=== PATIENT | female | born 1995 | race Caucasian/White ===

== ENCOUNTER 2017-04-06 11:22 | Outpatient (CLI) | payer OTHER ==
[~2017-04-06] VITALS: Ht 172.7 cm; Wt 113.0 kg
[~2017-04-06 11:22] MED LIST: IBUP-1222 PO; OXYC-302 PO
[2017-04-06 12:06] VITALS: BP 131/81
[2017-04-06 12:17] LABS: ASPARTATE AMINO TRANSFERASE 8 U/L (15-37); BLOOD UREA NITROGEN 6 mg/dL (7-18)
== END 2017-04-06 13:30 | disposition home or self-care (01) ==
LOC: LDOP 11:22
PROVIDERS: ATTEND Obstetrics & Gynecology Gynecology
DX: O24.419 Gestational diabetes mellitus in pregnancy, unspecified control (principal); O42.912 Preterm premature rupture of membranes, unspecified as to length of time between rupture and onset of labor, second trimester; O62.9 Abnormality of forces of labor, unspecified; Z3A.26 26 weeks gestation of pregnancy
CPT/HCPCS: 36415; 59025; 80053; 81001; 82248; 82570; 84156; 84550; 85025; 99211; G0463

== ENCOUNTER 2017-04-23 10:07 | Inpatient (IN) | payer OTHER ==
[~2017-04-23] VITALS: Ht 170.2 cm; Wt 114.1 kg
[2017-04-23] MEDS ORDERED: OXYTOCIN 30U/ 0.9% NaCL 500ML 500 ML IV ONE (10:45)
[2017-04-23] MEDS ORDERED: OXYTOCIN 30U/ 0.9% NaCL 500ML 500 ML IV PRN (10:45)
[2017-04-23] MEDS ORDERED: FENTANYL PF 100 MCG/2ML IVPush PRN (11:00)
[2017-04-23] MEDS ORDERED: FENTANYL PF 100 MCG/2ML IV PRN (11:00)
[2017-04-23] MEDS: LACTATED RINGERS 1,000 ML IV SCH ×2 (11:05→14:27)
[2017-04-23 11:09] VITALS: BP 131/67
[2017-04-23] MEDS ORDERED: PREN1TAB60 PO (11:09)
[2017-04-23] MEDS ORDERED: RANI150T8 PO (11:09)
[2017-04-23 11:23] LABS: ASPARTATE AMINO TRANSFERASE 8 U/L (15-37); BLOOD UREA NITROGEN 7 mg/dL (7-18)
[2017-04-23] MEDS ORDERED: OXYTOCIN 30U/ 0.9% NaCL 500ML 500 ML ONE (11:58)
[2017-04-23] MEDS ORDERED: NEWBORN KIT ONE (11:58)
[2017-04-23] MEDS ORDERED: FENTANYL/BUPIV./NS/PF 250 ML EPIDCONT SCH (15:13)
[2017-04-23] MEDS ORDERED: LACTATED RINGERS 1,000 ML IV SCH (15:13)
[2017-04-23] MEDS ORDERED: FENTANYL/BUPIV./NS/PF 250 ML EPIDCONT ONE (15:14)
[2017-04-23] MEDS ORDERED: BUPIVACAINE/PF 0.25% ONE (15:14)
[2017-04-23] MEDS ORDERED: BUPIVACAINE 0.25% ONE (15:26)
[2017-04-23] MEDS ORDERED: NALOXONE 0.4 MG/ML, 1ML IVPush PRN (15:30)
[2017-04-23] MEDS ORDERED: EPHEDRINE 50 MG/ML, 1ML IVPush PRN (15:30)
[2017-04-23] MEDS ORDERED: LACTATED RINGERS 1,000 ML IVBOLUS PRN (15:30)
[2017-04-23] MEDS: OXYTOCIN 30U/ 0.9% NaCL 500ML 500 ML IV SCH (19:41)
[2017-04-23] MEDS ORDERED: MAGNESIUM HYDROXIDE 8%, 30ML UDC PO PRN (20:00)
[2017-04-23] MEDS ORDERED: DIPH,PERTUSS(ACELL),TET VAC/PF NC IM-VACC PRN (20:00)
[2017-04-23] MEDS ORDERED: ONDANSETRON 2MG/ML, 2ML IV PRN (20:00)
[2017-04-23] MEDS ORDERED: BISACODYL 10 MG SUPP PR PRN (20:00)
[2017-04-23] MEDS ORDERED: MISOPROSTOL 200 MCG TABLET PR PRN (20:00)
[2017-04-23] MEDS ORDERED: CALCIUM CARBONATE 500 MG TAB.CHEW PO PRN (20:00)
[2017-04-23] MEDS ORDERED: MEASLES,MUMPS&RUBELLA VACC/PF 0.5 ML SQ PRN (20:00)
[2017-04-23] MEDS ORDERED: DOCUSATE 100 MG CAPSULE PO PRN (20:00)
[2017-04-23] MEDS ORDERED: OXYcodone/APAP 5/325MG TABLET PO PRN (20:00)
[2017-04-23] MEDS ORDERED: RHOGAM FROM BLOOD BANK 1 NOTE EA IM/IV ONE (20:00)
[2017-04-23 22:40] VITALS: BP 142/79
[2017-04-23 23:45] VITALS: BP 120/63
[2017-04-24] MEDS: IBUPROFEN 600 MG TABLET PO PRN ×4 (01:06→19:35)
[2017-04-24 04:01] VITALS: BP 119/64
[2017-04-24] MEDS: OXYTOCIN 30U/ 0.9% NaCL 500ML 500 ML IV SCH ×2 (05:41→16:11)
[2017-04-24 07:17] VITALS: BP 129/79
[2017-04-24] MEDS: OXYcodone IR 5MG TABLET PO PRN ×3 (07:31→18:09)
[2017-04-24] MEDS ORDERED: PRENATAL VIT/IRON/FA 1 EACH TABLET PO SCH (09:00)
[2017-04-24 12:20] VITALS: BP 132/68
[2017-04-24] MEDS ORDERED: IBUP-1222 PO (16:20)
[2017-04-24] MEDS ORDERED: OXYC-302 PO (16:22)
== END 2017-04-24 20:20 | disposition home or self-care (01) | DRG 775 ==
LOC: LDIP 10:07 → 2NW 22:40
PROVIDERS: ADMIT Obstetrics & Gynecology Gynecology; ATTEND Obstetrics & Gynecology Gynecology
PROC: 10E0XZZ Delivery of Products of Conception, External Approach (ICD-10-PCS; principal; 2017-04-23)
PROC: 0UQMXZZ Repair Vulva, External Approach (ICD-10-PCS; 2017-04-23)
PROC: 0KQM0ZZ Repair Perineum Muscle, Open Approach (ICD-10-PCS; 2017-04-23)
PROC: 3E033VJ Introduction of Other Hormone into Peripheral Vein, Percutaneous Approach (ICD-10-PCS; 2017-04-23)
PROC: 10907ZC Drainage of Amniotic Fluid, Therapeutic from Products of Conception, Via Natural or Artificial Opening (ICD-10-PCS; 2017-04-23)
PROC: 3E0R3CZ (ICD-10-PCS; 2017-04-23)
PROC: 00HU33Z Insertion of Infusion Device into Spinal Canal, Percutaneous Approach (ICD-10-PCS; 2017-04-23)
PROC: 3E0334Z Introduction of Serum, Toxoid and Vaccine into Peripheral Vein, Percutaneous Approach (ICD-10-PCS; 2017-04-24)
DX: O26.893 Other specified pregnancy related conditions, third trimester (principal); Z37.0 Single live birth; Z3A.39 39 weeks gestation of pregnancy; Z67.21 Type B blood, Rh negative; Z82.49 Family history of ischemic heart disease and other diseases of the circulatory system; Z80.3 Family history of malignant neoplasm of breast; O70.1 Second degree perineal laceration during delivery; O71.82 Other specified trauma to perineum and vulva
CPT/HCPCS: 36415; 80053; 82803; 85025; 85461; 86850; 86900; J2790; J3490; J2590; J3010; J7120

== ENCOUNTER 2018-12-09 17:57 | Emergency (ER) | payer BC, OTHER ==
[~2018-12-09] VITALS: Ht 172.7 cm; Wt 110.0 kg
[~2018-12-09 17:57] MED LIST changes: +PREN1TAB60 PO; +RANI150T23 PO
--- NOTE | 2018-12-09 18:01 | NUR ---
HAULAGE ENGINE OPERATOR: [employer] CALLED FOR HEART TONES, STATES THEY WILL ASSESS PT ONCE SHE IS IN A ROOM
[2018-12-09 18:03] VITALS: BP 127/83
--- NOTE | 2018-12-09 18:27 | NUR ---
FERMENTOLOGIST: L&D RN COMING TO ASSESS FHT
--- NOTE | 2018-12-09 18:37 | NUR ---
LIVING SUPERVISOR: L&D RN MARIE TO DISCUSS PT W/ BHARAT TELLEZ FOR POSSIBLE EVAL OF PT AFTER BEING D/C'ED FROM ED.
--- NOTE | 2018-12-09 18:45 | NUR ---
RN at bedside, History of complaint obtained, Patient denies abdominal pain, back pain, leaking or bleeding. Reports positive movement. Heart tones assessed via Doppler. FHT 140's with Moderate variability. Patient advised to Present to Labor and Delivery with any concerns. Call to . diesel engine erector Physician, Dr. Garzon. No new orders given, patient may be treated in ED.
--- NOTE | 2018-12-09 19:55 | NUR ---
CALLED AND SPOKE WITH MARIE [employer] CHATMAN. PT MAY BE DISCHARGED HOME.
== END 2018-12-09 19:57 | disposition home or self-care (01) ==
LOC: ED 19:51
DX: O9A.213 Injury, poisoning and certain other consequences of external causes complicating pregnancy, third trimester (principal); S82.54XA Nondisplaced fracture of medial malleolus of right tibia, initial encounter for closed fracture; Z3A.31 31 weeks gestation of pregnancy; W01.0XXA Fall on same level from slipping, tripping and stumbling without subsequent striking against object, initial encounter; Y93.89 Activity, other specified; Y92.009 Unspecified place in unspecified non-institutional (private) residence as the place of occurrence of the external cause; Y99.8 Other external cause status
CPT/HCPCS: 29515; 99283

== ENCOUNTER → 2018-12-13 | Outpatient (CLI) | payer BC | END | disposition home or self-care (01) | LOC: RAD 08:06 | PROVIDERS: ATTEND Orthopaedic Surgery | DX: S82.54XA Nondisplaced fracture of medial malleolus of right tibia, initial encounter for closed fracture (principal); S82.891A Other fracture of right lower leg, initial encounter for closed fracture; X58.XXXA Exposure to other specified factors, initial encounter; Y93.89 Activity, other specified; Y92.89 Other specified places as the place of occurrence of the external cause; Y99.8 Other external cause status ==

== ENCOUNTER 2018-12-21 06:52 | Day surgery (SDC) | payer BC ==
[~2018-12-21] VITALS: Ht 171.4 cm; Wt 110.0 kg
[~2018-12-21 06:52] MED LIST changes: +ACET-1600 PO; +BUPIVACAINE/PF 0.5% ONE
[2018-12-21] MEDS ORDERED: LACTATED RINGERS 1,000 ML IV SCH (07:07)
[2018-12-21 07:11] VITALS: BP 130/83
[2018-12-21] MEDS ORDERED: MIDAZOLAM 1 MG/ML, 2ML ONE (07:18)
[2018-12-21] MEDS ORDERED: FENTANYL PF 250 MCG/5ML ONE (07:18)
[2018-12-21] MEDS ORDERED: EPINEPHRINE 1 MG/ML, 1ML ONE (07:20)
[2018-12-21] MEDS ORDERED: BUPIVACAINE/PF 0.25% ONE (07:20)
[2018-12-21] MEDS ORDERED: PROPOFOL 50 ML ONE ×2 (07:21→08:52)
[2018-12-21] MEDS ORDERED: ROPIvacaine/PF 0.5%, 30 ML ONE (07:30)
[2018-12-21] MEDS ORDERED: EPHEDRINE 50 MG/ML, 1ML ONE (07:59)
[2018-12-21] MEDS ORDERED: MEPERIDINE/PF 25MG/0.5ML IVPush PRN (09:00)
[2018-12-21] MEDS ORDERED: ACETAMINOPHEN 325 MG TABLET PO PRN (09:00)
[2018-12-21] MEDS ORDERED: PROMETHAZINE 25 MG/ML, 1ML IV PRN (09:00)
[2018-12-21] MEDS ORDERED: FENTANYL PF 100 MCG/2ML IV PRN (09:00)
[2018-12-21] MEDS ORDERED: PROMETHAZINE 25 MG/ML, 1ML ONE (09:00)
[2018-12-21] MEDS ORDERED: PROPOFOL 10 MG/ML, 20ML ONE (09:14)
[2018-12-21] MEDS ORDERED: WATER-INJECTION,STERILE 10 ML IV ONE (09:14)
[2018-12-21] MEDS ORDERED: LIDOCAINE 2% 100MG/5ML SYRINGE ONE (09:14)
[2018-12-21] MEDS ORDERED: ONDANSETRON 2MG/ML, 2ML ONE (09:14)
[2018-12-21] MEDS ORDERED: CEFAZOLIN 1,000 MG ONE (09:14)
[2018-12-21] MEDS: HYDROmorphone 2 MG/ML, 1ML IVPush PRN ×2 (09:36→09:51)
[2018-12-21] MEDS: OXYcodone 5 MG/5 ML ORAL.SOL UDC PO PRN ×2 (09:41→13:55)
[2018-12-21] MEDS ORDERED: OXYcodone 5 MG/5 ML ORAL.SOL UDC ONE (09:42)
[2018-12-21] MEDS ORDERED: HYDROmorphone 1 MG/ML, 1ML ONE (09:42)
[2018-12-21] MEDS ORDERED: FAMOTIDINE 20 MG/2 ML IVPush SCH (10:00)
[2018-12-21] MEDS ORDERED: CALCIUM CARBONATE 500 MG TAB.CHEW PO PRN (10:00)
[2018-12-21] MEDS ORDERED: ACETAMINOPHEN 325 MG TABLET ONE (11:21)
[2018-12-21] MEDS ORDERED: FENTANYL PF 100 MCG/2ML ONE (11:28)
== END 2018-12-21 14:10 | disposition home or self-care (01) ==
LOC: OUT 06:52
PROVIDERS: ATTEND Orthopaedic Surgery
DX: S82.841A Displaced bimalleolar fracture of right lower leg, initial encounter for closed fracture (principal); X58.XXXA Exposure to other specified factors, initial encounter; Y93.89 Activity, other specified; Y92.89 Other specified places as the place of occurrence of the external cause; Y99.8 Other external cause status
CPT/HCPCS: 27814; 59025; 64445; 64447; 73600; 76000; C1713; J0171; J0690; J1170; J2250; J2405; J2550; J2704; J2795; J3010; J3490; J7120

== ENCOUNTER 2019-02-08 05:07 | Inpatient (IN) | payer BC ==
[~2019-02-08] VITALS: Ht 170.2 cm; Wt 113.6 kg
[~2019-02-08 05:07] MED LIST changes: -BUPIVACAINE/PF 0.5% ONE
[2019-02-08] MEDS ORDERED: OXYTOCIN 30U/ 0.9% NaCL 500ML 500 ML IV ONE (05:10)
[2019-02-08] MEDS ORDERED: OXYTOCIN 30U/ 0.9% NaCL 500ML 500 ML IV PRN (05:10)
[2019-02-08 05:18] VITALS: BP 122/69
[2019-02-08] MEDS ORDERED: TERBUTALINE 1 MG/ML, 1ML IVPush PRN ×2 (05:30)
[2019-02-08] MEDS ORDERED: FENTANYL PF 100 MCG/2ML IVPush PRN (05:30)
[2019-02-08] MEDS ORDERED: FENTANYL PF 100 MCG/2ML IV PRN (05:30)
[2019-02-08] MEDS: LACTATED RINGERS 1,000 ML IV SCH ×3 (05:33→11:37)
[2019-02-08] MEDS ORDERED: OXYTOCIN 30U/ 0.9% NaCL 500ML 500 ML ONE (05:35)
[2019-02-08] MEDS ORDERED: NEWBORN KIT ONE (06:07)
[2019-02-08 06:35] LABS: BASOPHILS # (AUTO) 0.02 x10^3/uL (0-0.1); BASOPHILS % (AUTO) 0 % (0-1); EOSINOPHILS # (AUTO) 0.05 x10^3/uL (0-0.4); EOSINOPHILS % (AUTO) 1 % (1-7); LYMPHOCYTES # (AUTO) 1.56 x10^3/uL (1-3.4); LYMPHOCYTES % (AUTO) 20 % (22-44); MD NO; MEAN CORPUSCULAR HGB CONC 33.7 g/dL (32.4-35.8); MEAN CORPUSCULAR VOLUME 88.9 fL (80-100); MEAN PLATELET VOLUME 8.5 fL (7.4-10.4); MONOCYTES # (AUTO) 0.61 x10^3/uL (0.2-0.8); MONOCYTES % (AUTO) 8 % (2-9); NEUTROPHILS # (AUTO) 5.71 x10^3/uL (1.8-6.8); NEUTROPHILS % (AUTO) 72 % (42-75); PLATELET COUNT 203 x10^3/uL (130-400); RED BLOOD COUNT 4.02 x10^6/uL (3.82-5.3); RED CELL DISTRIBUTION WIDTH 13.2 % (9.6-15.2)
[2019-02-08] MEDS ORDERED: ONDANSETRON 2MG/ML, 2ML IVPush PRN ×2 (07:00→11:30)
[2019-02-08] MEDS ORDERED: CALCIUM CARBONATE 500 MG TAB.CHEW PO PRN (07:00)
[2019-02-08] MEDS ORDERED: ROPIvacaine/PF 0.2% , 100 ML ONE (10:36)
[2019-02-08] MEDS ORDERED: LIDOCAINE/PF 1.5%-EPI 1:200K, 30ML ONE (10:36)
[2019-02-08] MEDS ORDERED: EPHEDRINE 50 MG/ML, 1ML ONE (11:23)
[2019-02-08] MEDS ORDERED: FENTANYL/BUPIV./NS/PF 250 ML EPIDCONT SCH (11:25)
[2019-02-08] MEDS ORDERED: LACTATED RINGERS 1,000 ML IV SCH (11:25)
[2019-02-08] MEDS ORDERED: LACTATED RINGERS 1,000 ML IVBOLUS PRN (11:30)
[2019-02-08] MEDS ORDERED: EPHEDRINE 50 MG/ML, 1ML IVPush PRN (11:30)
[2019-02-08] MEDS ORDERED: NALOXONE 0.4 MG/ML, 1ML IVPush PRN (11:30)
[2019-02-08] MEDS ORDERED: DIPHENHYDRAMINE 50 MG/ML, 1ML IVPush PRN (11:30)
[2019-02-08] MEDS: OXYTOCIN 30U/ 0.9% NaCL 500ML 500 ML IV SCH ×2 (13:56→23:56)
[2019-02-08] MEDS ORDERED: DOCUSATE 100 MG CAPSULE PO PRN (14:00)
[2019-02-08] MEDS ORDERED: MEASLES,MUMPS&RUBELLA VACC/PF 0.5 ML SQ PRN (14:00)
[2019-02-08] MEDS ORDERED: MISOPROSTOL 200 MCG TABLET PR PRN (14:00)
[2019-02-08] MEDS ORDERED: RHOGAM FROM BLOOD BANK 1 NOTE EA IM/IV ONE (14:00)
[2019-02-08] MEDS ORDERED: DIPH,PERTUSS(ACELL),TET VAC/PF NC IM-VACC PRN (14:00)
[2019-02-08 16:51] VITALS: BP 117/75
[2019-02-08] MEDS: IBUPROFEN 600 MG TABLET PO PRN (18:10)
[2019-02-08] MEDS: OXYcodone IR 5MG TABLET PO PRN (18:12)
[2019-02-08 20:15] VITALS: BP 114/70
[2019-02-08 21:33] LABS: BASOPHILS # (AUTO) 0.05 x10^3/uL (0-0.1); BASOPHILS % (AUTO) 0 % (0-1); EOSINOPHILS # (AUTO) 0.05 x10^3/uL (0-0.4); EOSINOPHILS % (AUTO) 1 % (1-7); LYMPHOCYTES # (AUTO) 1.54 x10^3/uL (1-3.4); LYMPHOCYTES % (AUTO) 14 % (22-44); MD NO; MEAN CORPUSCULAR HEMOGLOBIN 30.7 pg (27.0-34.8); MEAN CORPUSCULAR HGB CONC 34.5 g/dL (32.4-35.8); MEAN CORPUSCULAR VOLUME 89.1 fL (80-100); MEAN PLATELET VOLUME 8.9 fL (7.4-10.4); MONOCYTES # (AUTO) 0.69 x10^3/uL (0.2-0.8); MONOCYTES % (AUTO) 6 % (2-9); NEUTROPHILS # (AUTO) 8.43 x10^3/uL (1.8-6.8); NEUTROPHILS % (AUTO) 78 % (42-75); PLATELET COUNT 185 x10^3/uL (130-400); RED CELL DISTRIBUTION WIDTH 13.4 % (9.6-15.2)
[2019-02-09] VITALS: BP 114/68
[2019-02-09] MEDS: IBUPROFEN 600 MG TABLET PO PRN ×2 (01:09→11:34)
[2019-02-09] MEDS: OXYcodone IR 5MG TABLET PO PRN ×3 (01:09→11:34)
[2019-02-09 04:00] VITALS: BP 112/70
[2019-02-09 07:25] VITALS: BP 119/74
[2019-02-09] MEDS ORDERED: IBUP-1222 PO (08:57)
[2019-02-09] MEDS ORDERED: OXYC-302 PO (08:57)
[2019-02-09] MEDS ORDERED: PRENATAL VIT/IRON/FA 1 EACH TABLET PO SCH (09:00)
[2019-02-09] MEDS ORDERED: CALCIUM CARBONATE 500 MG TAB.CHEW PO PRN (10:00)
[2019-02-09] MEDS ORDERED: ONDANSETRON ODT 8 MG ONE (14:15)
[2019-02-09] MEDS ORDERED: ONDANSETRON 8 MG TABLET PO ONE (14:30)
== END 2019-02-09 15:32 | disposition home or self-care (01) | DRG 807 ==
LOC: LDIP 05:07 → 2NW 16:10
PROVIDERS: ADMIT Obstetrics & Gynecology Gynecology; ATTEND Obstetrics & Gynecology Gynecology
PROC: 3E0S3BZ Introduction of Anesthetic Agent into Epidural Space, Percutaneous Approach (ICD-10-PCS; principal; 2019-02-08)
PROC: 10E0XZZ Delivery of Products of Conception, External Approach (ICD-10-PCS; 2019-02-08)
PROC: 00HU33Z Insertion of Infusion Device into Spinal Canal, Percutaneous Approach (ICD-10-PCS; 2019-02-08)
PROC: 0HQ9XZZ Repair Perineum Skin, External Approach (ICD-10-PCS; 2019-02-08)
PROC: 3E033VJ Introduction of Other Hormone into Peripheral Vein, Percutaneous Approach (ICD-10-PCS; 2019-02-08)
PROC: 3E0234Z Introduction of Serum, Toxoid and Vaccine into Muscle, Percutaneous Approach (ICD-10-PCS; 2019-02-09)
DX: O77.0 Labor and delivery complicated by meconium in amniotic fluid (principal); Z37.0 Single live birth; O69.81X0 Labor and delivery complicated by cord around neck, without compression, not applicable or unspecified; O48.0 Post-term pregnancy; O26.899 Other specified pregnancy related conditions, unspecified trimester; Z67.91 Unspecified blood type, Rh negative; O99.214 Obesity complicating childbirth; E66.9 Obesity, unspecified; O32.6XX0 Maternal care for compound presentation, not applicable or unspecified; O70.0 First degree perineal laceration during delivery; Z82.49 Family history of ischemic heart disease and other diseases of the circulatory system; Z80.3 Family history of malignant neoplasm of breast
CPT/HCPCS: 36415; J2790; 82803; 85025; 85461; 86850; 86900; G0378; J2590; J3010; J7120